=== PATIENT | male | born 2000 | race African-American/Black ===

== ENCOUNTER 2020-05-05 17:11 | Emergency (ER) | payer OTHER ==
[~2020-05-05] VITALS: Ht 160 cm; Wt 54.4 kg
[~2020-05-05 17:11] MED LIST: NOHOMEMEDICATIONS; NORCO 5-325 TA1 EACH PO
[2020-05-05] MEDS ORDERED: MOBIC7.5 MG PO (19:39)
[2020-05-05 20:08] VITALS: BP 122/78
== END 2020-05-05 20:18 | disposition home or self-care (01) ==
LOC: ER 17:11
DX: S70.12XA Contusion of left thigh, initial encounter (principal); S09.90XA Unspecified injury of head, initial encounter; Z88.8 Allergy status to other drugs, medicaments and biological substances; V89.2XXA Person injured in unspecified motor-vehicle accident, traffic, initial encounter; Y93.I9 Activity, other involving external motion; Y92.488 Other paved roadways as the place of occurrence of the external cause; Y99.8 Other external cause status